=== PATIENT | female | born 1995 | race Caucasian/White ===

== ENCOUNTER 2016-08-16 17:34 | Emergency (ER) | payer BC, OTHER ==
[~2016-08-16 17:34] MED LIST: DEXTSYP41 PO; IBUP-1050 PO; VNTHFA/IN INH
--- NOTE | 2016-08-16 17:50 | EMERGENCY ROOM VISIT NOTE ---
History Report prepared by Latasha: Navneet Gómez Under the Supervision of: Dr. Derek Martell M.D. First contact with patient: 17:42 Stated Complaint: ETOH History of Present Illness The patient is a 21 year old female who presents to the Emergency Room with complaints of an acute alcohol overdose that occurred prior to arrival. The patient was reportedly found very intoxicated in public. She was not with any friends. Nursing notes that the patient was combative and uncooperative upon arrival. The patient states that she does not normally drink and that this is her first time. The patient denies any health problems. Complete history is limited secondary to alcohol intoxication. Source of History: patient, nursing staff History Limited By: intoxication Onset: [employer] Position: other (global) Quality: other (alcohol overdose) Timing: other (acute) Review of Systems ROS is limited secondary to alcohol intoxication. Past Medical & Surgical Medical Problems: (1) Chest wall pain (2) Costochondritis (3) Cough Old medical records were reviewed. Nurse's notes were reviewed and I agree with. Family History Patient reports no known family medical history. Social History Smoking Status: Never Smoker Marital Status: single Occupation Status: [employer] student Current/Historical Medications No Active Prescriptions or Reported Meds Allergies Coded Allergies: No Known Allergies (Unverified , 03/04/16) Physical Exam Vital Signs Date Time Temp Pulse Resp B/P Pulse Ox O2 Delivery O2 Flow Rate FiO2 08/16/16 20:00 86 18 121/81 99 08/16/16 18:21 79 08/16/16 18:16 85 18 126/87 99 Room Air 08/16/16 17:36 107 20 100 Room Air Physical Exam General: Intoxicated crying young female that smells of alcohol. HEENT: Normal cephalic atraumatic. Pupils are equal round and reactive to light. Extraocular movements are intact. Oropharynx is pink with moist mucous membranes. No swelling of the mouth lips or tongue. Neck: Supple with a midline trachea. No meningeal signs or stiffness, no JVD or bruits. No Stridor. Chest: Clear to auscultation bilaterally. No wheezes or rhonchi. No increased work of breathing. Heart: regular rate and rhythm. Abdomen: Soft nontender, nondistended without rebound guarding or rigidity. Extremities: No cyanosis clubbing or edema. No calf tenderness or assymetry Spine/Back. Non tender to palpation. No CVA tenderness Skin: Good turgor without rashes. Neurologic exam: Cranial nerves two through 12 are intact. Motor and sensation are intact and symmetrical throughout. Medical Decision & Procedures Laboratory Results Test 08/16/16 18:22 Ethyl Alcohol mg/dL 294.0 mg/dl (0-3) Laboratory studies as stated above per my review. ED Course 1739: Past medical records reviewed. The patient was evaluated in room B12A, and a complete history and physical examination were performed. 1804: The patient is still crying and wants to call her father. 1909: The charge nurse is speaking with the patient. 1913: The patient has calmed down. 1945: A sober friend has arrived to take the patient home. 1949: Reassessed the patient. Discussed the discharge instructions with the patient. She verbalized understanding. The patient is ready for discharge. Medical Decision Differential diagnosis includes alcohol intoxication, trauma, overdose, electrolyte or metabolic abnormality. This patient comes in as described above. She was yelling and screaming and obviously intoxicated she tells me she does not normally drink. She is out-of- control initially and hyperventilating trying to get out of the bed. She was placed on operations administrative assistant. We did try to calm her down she wanted to call her dad which we let her and she was unable to get a hold of her dad. Blood alcohol was ordered came back elevated to 94. The patient did calm down without any physical or chemical restraints. She did have sober friends show up after several hours and she clinically sobered up significantly. She looks well she denies any trauma or complaints or coingestions or thoughts of hurting herself. She will be discharged home with a female friend. She will rest and drink plenty of fluids and return if: worsening of symptoms, any new problems or concerns and she should not drinking more alcohol. Impression Primary Impression: Alcoholic intoxication Scribe Attestation The scribe's documentation has been prepared under my direction and personally reviewed by me in its entirety. I confirm that the note above accurately reflects all work, treatment, procedures, and medical decision making performed by me. Departure Information Dispostion Home / Self-Care Prescriptions No Active Prescriptions or Reported Meds Referrals [facility] (PCP) Forms HOME CARE DOCUMENTATION FORM, IMPORTANT VISIT INFORMATION Patient Instructions Alcohol Intoxication - [facility], [facility] Additional Instructions Rest. Drink plenty of fluids. Do not drink anymore alcohol Return if any new problems or concerns.
[2016-08-16 20:00] VITALS: BP 121/81; PULSE 86; O2SAT 99
== END 2016-08-16 20:00 | disposition home or self-care (01) ==
LOC: EDBD 17:34 → C.EDB 17:35
DX: F10.129 Alcohol abuse with intoxication, unspecified (principal); Y90.8 Blood alcohol level of 240 mg/100 ml or more